=== PATIENT | female | born 1970 | race Caucasian/White ===

== ENCOUNTER 2017-04-29 10:40 | Emergency (ER) | payer OTHER ==
[2017-04-29 11:06] VITALS: BP 174/100
--- NOTE | 2017-04-29 11:16 | EDM.PDOC ---
ED HPI GENERAL MEDICAL PROBLEM - General Chief Complaint: Abdominal Pain Stated Complaint: VOMITING/CHEST AND ABDOMINAL PAIN Time Seen by Provider: 04/29/17 11:14 Source of Information: Reports: Patient - History of Present Illness INITIAL COMMENTS - FREE TEXT/NARRATIVE: Patient is here for evaluation of nausea/vomiting/diarrhea since around 3:00 this morning. She notes that she did have some abdominal pain on Thursday evening, but she felt very well Thursday evening. She had a normal dinner and snack Thursday night before going to bed. She was awoken around 3 in the morning with diarrhea and vomiting at the same time. Patient states she has had several episodes of this in the last 8 hours. She denies any fever/chills. Denies hematemesis/hematochezia/melena. Denies any change in diet. She has not traveled anywhere had no contacts that she knows of. Currently having mid abdominal pain. Epigastric Pain Score (Numeric/FACES): 10 - Related Data Allergies Allergy/AdvReac Type Severity Reaction Status Date / Time No Known Allergies Allergy Verified 04/29/17 11:06 Home Meds: Home Meds ALPRAZolam [Xanax] 1 mg PO Q8H PRN 11/19/13 [History] Ibuprofen 800 mg PO TID PRN 11/19/13 [History] Triamcinolone Acetonide 1 applic TOP DAILY 11/19/13 [History] DULoxetine [Cymbalta] 60 mg PO DAILY 04/29/17 [History] Methylcellulose [Fiber] 500 mg PO DAILY 04/29/17 [History] Ondansetron HCl [Zofran] 4 mg PO Q8HR PRN #10 tablet 04/29/17 [Rx] buPROPion [buPROPion XL] 150 mg PO DAILY 04/29/17 [History] Past Medical History Genitourinary History: Reports: Urinary Incontinence Musculoskeletal History: Reports: Fibromyalgia Psychiatric History: Reports: Anxiety, Depression - Past Surgical History Female Surgical History: Reports: Hysterectomy, Tubal Ligation Social & Family History - Tobacco Use Smoking Status *Q: Current Every Day Smoker Years of Tobacco use: 20 Packs/Tins Daily: 0.5 - Caffeine Use Caffeine Use: Reports: Soda, Tea - Alcohol Use Days Per Week of Alcohol Use: 0 - Recreational Drug Use Recreational Drug Use: No - Living Situation & Occupation Living situation: Reports: , with Spouse Occupation: Unemployed ED ROS GENERAL - Review of Systems Review Of Systems: See Below Constitutional: Reports: Weakness, Fatigue, Decreased Appetite. Denies: Fever, Chills HEENT: Reports: No Symptoms Respiratory: Reports: No Symptoms Cardiovascular: Reports: No Symptoms GI/Abdominal: Reports: Abdominal Pain, Decreased Appetite, Nausea, Vomiting. Denies: Bloody Stool, Hematemesis : Reports: No Symptoms Musculoskeletal: Reports: No Symptoms Skin: Reports: No Symptoms Neurological: Reports: No Symptoms Psychiatric: Reports: No Symptoms ED EXAM, GI/ABD - Physical Exam Exam: See Below Exam Limited By: No Limitations General Appearance: Alert, WD/WN, Anxious, Mild Distress Throat/Mouth: Normal Inspection, Normal Oropharynx Neck: Normal Inspection, Supple, Non-Tender Respiratory/Chest: No Respiratory Distress, Lungs Clear, Normal Breath Sounds Cardiovascular: Regular Rate, Rhythm, No Murmur GI/Abdominal Exam: Soft, Tender (Mild generalized tenderness, moderate epigastric tenderness), Abnormal Bowel Sounds (Hyperactive) Neurological: Alert, Oriented Psychiatric: Anxious Skin Exam: Warm, Dry, Intact Course - Vital Signs Last Recorded V/S: Last Vital Signs Temp 97.8 F 04/29/17 11:04 Pulse 79 04/29/17 11:04 Resp 24 H 04/29/17 11:04 BP 174/100 H 04/29/17 11:04 Pulse Ox 100 04/29/17 11:04 - Orders/Labs/Meds Orders: Active Orders 24 hr Category Date Time Status EKG Documentation Completion [RC] ASDIRECTED Care 04/29/17 13:13 Active Sodium Chloride 0.9% [Normal Saline] 1,000 ml Med 04/29/17 13:20 Active IV ONETIME EKG 12 Lead [EK] Stat Ther 04/29/17 13:13 Ordered Medication Orders Sodium Chloride (Normal Saline) 1,000 mls @ 250 mls/hr IV ONETIME ONE Stop: 04/29/17 17:19 Last Admin: 04/29/17 13:33 Dose: 250 mls/hr Labs: Laboratory Tests 04/29/17 04/29/17 04/29/17 Range/Units 10:55 10:55 11:44 WBC 7.25 (3.98-10.04) K/mm3 RBC 4.71 (3.98-5.22) M/mm3 Hgb 13.8 (11.2-15.7) gm/L Hct 40.6 (34.1-44.9) % MCV 86.2 (79.4-94.8) fl MCH 29.3 (25.6-32.2) pg MCHC 34.0 (32.2-35.5) g/dl RDW Std Deviation 42.8 (36.4-46.3) fL Plt Count 354 (182-369) K/mm3 MPV 9.3 L (9.4-12.3) fl Neutrophils % (Manual) 74 H (40-60) % Band Neutrophils % 1 (0-10) % Lymphocytes % (Manual) 23 (20-40) % Atypical Lymphs % 0 % Monocytes % (Manual) 2 (2-10) % Eosinophils % (Manual) 0 L (0.7-5.8) % Basophils % (Manual) 0 L (0.1-1.2) Platelet Estimate Adequate RBC Morph Comment Normal Sodium 136 (136-145) mEq/L Potassium 3.8 (3.5-5.1) mEq/L Chloride 100 (98-107) mEq/L Carbon Dioxide 27 (21-32) mEq/L Anion Gap 12.8 (5-15) BUN 17 (7-18) mg/dL Creatinine 0.9 (0.55-1.02) mg/dL Est Cr Clr Drug Dosing TNP Estimated GFR (MDRD) > 60 (>60) mL/min BUN/Creatinine Ratio 18.9 H (14-18) Glucose 117 H (74-106) mg/dL Calcium 8.8 (8.5-10.1) mg/dL Total Bilirubin 0.3 (0.2-1.0) mg/dL AST 31 (15-37) U/L ALT 53 (14-59) U/L Alkaline Phosphatase 74 (46-116) U/L C-Reactive Protein < 0.2 (<1.0) mg/dL Total Protein 7.3 (6.4-8.2) g/dl Albumin 4.0 (3.4-5.0) g/dl Globulin 3.3 gm/dL Albumin/Globulin Ratio 1.2 (1-2) Lipase 80 (73-393) U/L Urine Color Yellow (Yellow) Urine Appearance Clear (Clear) Urine pH 8.5 H (5.0-8.0) Ur Specific [place] 1.020 (1.005-1.030) Urine Protein 1+ H (Negative) Urine Glucose (UA) Negative (Negative) Urine Ketones Negative (Negative) Urine Occult Blood Trace-intact H (Negative) Urine Nitrite Negative (Negative) Urine Bilirubin Negative (Negative) Urine Urobilinogen 0.2 (0.2-1.0) Ur Leukocyte Esterase Negative (Negative) Urine RBC 5-10 H (0-5) /hpf Urine WBC 0-5 (0-5) /hpf Ur Epithelial Cells 0-5 (0-5) /hpf Urine Bacteria Few (FEW) /hpf Urine Mucus Few (FEW) /hpf Urine Opiates Screen (NEGATIVE) Ur Buprenorphine Scrn (NEGATIVE) Ur Oxycodone Screen (NEGATIVE) Urine Methadone Screen (NEGATIVE) Ur Propoxyphene Screen (NEGATIVE) Ur Barbiturates Screen (NEGATIVE) Ur Tricyclics Screen (NEGATIVE) Ur Phencyclidine Scrn (NEGATIVE) Ur Amphetamine Screen (NEGATIVE) U Methamphetamines Scrn (NEGATIVE) U Benzodiazepines Scrn (NEGATIVE) U Cocaine Metab Screen (NEGATIVE) U Marijuana (THC) Screen (NEGATIVE) 04/29/17 Range/Units 11:44 WBC (3.98-10.04) K/mm3 RBC (3.98-5.22) M/mm3 Hgb (11.2-15.7) gm/L Hct (34.1-44.9) % MCV (79.4-94.8) fl MCH (25.6-32.2) pg MCHC (32.2-35.5) g/dl RDW Std Deviation (36.4-46.3) fL Plt Count (182-369) K/mm3 MPV (9.4-12.3) fl Neutrophils % (Manual) (40-60) % Band Neutrophils % (0-10) % Lymphocytes % (Manual) (20-40) % Atypical Lymphs % % Monocytes % (Manual) (2-10) % Eosinophils % (Manual) (0.7-5.8) % Basophils % (Manual) (0.1-1.2) Platelet Estimate RBC Morph Comment Sodium (136-145) mEq/L Potassium (3.5-5.1) mEq/L Chloride (98-107) mEq/L Carbon Dioxide (21-32) mEq/L Anion Gap (5-15) BUN (7-18) mg/dL Creatinine (0.55-1.02) mg/dL Est Cr Clr Drug Dosing Estimated GFR (MDRD) (>60) mL/min BUN/Creatinine Ratio (14-18) Glucose (74-106) mg/dL Calcium (8.5-10.1) mg/dL Total Bilirubin (0.2-1.0) mg/dL AST (15-37) U/L ALT (14-59) U/L Alkaline Phosphatase (46-116) U/L C-Reactive Protein (<1.0) mg/dL Total Protein (6.4-8.2) g/dl Albumin (3.4-5.0) g/dl Globulin gm/dL Albumin/Globulin Ratio (1-2) Lipase (73-393) U/L Urine Color (Yellow) Urine Appearance (Clear) Urine pH (5.0-8.0) Ur Specific [place] (1.005-1.030) Urine Protein (Negative) Urine Glucose (UA) (Negative) Urine Ketones (Negative) Urine Occult Blood (Negative) Urine Nitrite (Negative) Urine Bilirubin (Negative) Urine Urobilinogen (0.2-1.0) Ur Leukocyte Esterase (Negative) Urine RBC (0-5) /hpf Urine WBC (0-5) /hpf Ur Epithelial Cells (0-5) /hpf Urine Bacteria (FEW) /hpf Urine Mucus (FEW) /hpf Urine Opiates Screen Negative (NEGATIVE) Ur Buprenorphine Scrn Negative (NEGATIVE) Ur Oxycodone Screen Negative (NEGATIVE) Urine Methadone Screen Negative (NEGATIVE) Ur Propoxyphene Screen Negative (NEGATIVE) Ur Barbiturates Screen Negative (NEGATIVE) Ur Tricyclics Screen Negative (NEGATIVE) Ur Phencyclidine Scrn Negative (NEGATIVE) Ur Amphetamine Screen Negative (NEGATIVE) U Methamphetamines Scrn Negative (NEGATIVE) U Benzodiazepines Scrn Presumptive positive H (NEGATIVE) U Cocaine Metab Screen Negative (NEGATIVE) U Marijuana (THC) Screen Presumptive positive H (NEGATIVE) Meds: Medications Generic Name Dose Route Start Last Admin Trade Name Freq PRN Reason Stop Dose Admin Sodium Chloride 1,000 mls @ 250 mls/hr 04/29/17 13:20 04/29/17 13:33 Normal Saline IV 04/29/17 17:19 250 mls/hr ONETIME ONE Administration Discontinued Medications Generic Name Dose Route Start Last Admin Trade Name Devan PRN Reason Stop Dose Admin Sodium Chloride 1,000 mls @ 999 mls/hr 04/29/17 11:22 04/29/17 11:39 Normal Saline IV 04/29/17 12:22 999 mls/hr ONETIME ONE Administration Ketorolac Tromethamine 30 mg 04/29/17 11:22 04/29/17 11:38 Toradol IVPUSH 04/29/17 11:23 30 mg ONETIME ONE Administration Metoclopramide HCl 5 mg 04/29/17 13:20 04/29/17 13:33 Reglan IVPUSH 04/29/17 13:21 5 mg ONETIME ONE Administration Metoclopramide HCl 5 mg 04/29/17 15:25 04/29/17 16:33 Reglan IVPUSH 04/29/17 15:26 5 mg ONETIME ONE Administration Ondansetron HCl 4 mg 04/29/17 11:22 04/29/17 11:38 Zofran IVPUSH 04/29/17 11:23 4 mg ONETIME ONE Administration Ondansetron HCl 4 mg 04/29/17 12:22 04/29/17 12:26 Zofran IVPUSH 04/29/17 12:23 4 mg ONETIME ONE Administration - Re-Assessments/Exams Free Text/Narrative Re-Assessment/Exam: Not acute abdomen. WBC 7,250 with 74% neutrophils 1% bands. CRP <0.2. I do suspect that this is more of a viral gastroenteritis, however patient has been smoking marijuana frequently as well. I recommended that she avoid this. Patient had significant improvement in symptoms after antiemetic medication and fluids. Will discharge her home with when necessary Zofran. Advised patients to have very tiny sips of water today only. She may advance tomorrow diet tomorrow if feeling better. Very bland/BRAT diet. X line She'll follow-up with PCP in 48 hours or return to emergency room if needed. 04/29/17 14:54 04/29/17 16:59 Departure - Departure Time of Disposition: 17:00 Disposition: Home, Self-Care 01 Condition: Good Clinical Impression: Gastroenteritis - Discharge Information Prescriptions: Ondansetron HCl [Zofran] 4 mg PO Q8HR PRN #10 tablet PRN Reason: Nausea Instructions: Viral Gastroenteritis, Adult, [id number] Referrals: Ashly Arteaga, DAYCARE DIRECTOR [Primary Care Provider] - Forms: ED Department Discharge Additional Instructions: Very tiny sips of water today. If feeling better tomorrow, you can advance her diet. Very bland diet, no sugar /spicy/dairy foods. Do not use marijuana. Follow-up with your primary provider in the next 2 days or certainly return to the emergency room if needed. - My Orders Last 24 Hours: My Active Orders 04/29/17 13:13 EKG Documentation Completion [RC] ASDIRECTED EKG 12 Lead [EK] Stat 04/29/17 13:20 Sodium Chloride 0.9% [Normal Saline] 1,000 ml IV ONETIME - Assessment/Plan Last 24 Hours: My Active Orders 04/29/17 13:13 EKG Documentation Completion [RC] ASDIRECTED EKG 12 Lead [EK] Stat 04/29/17 13:20 Sodium Chloride 0.9% [Normal Saline] 1,000 ml IV ONETIME
[2017-04-29] MEDS ORDERED: Ondansetron 4 MG/2 ML SDV IVPUSH ONE ×2 (11:22→12:22)
[2017-04-29] MEDS ORDERED: Ketorolac 30 MG/ML SDV IVPUSH ONE (11:22)
[2017-04-29] MEDS ORDERED: Sodium Chloride 0.9% 1,000 ML IV ONE ×2 (11:22→13:20)
[2017-04-29] MEDS ORDERED: Metoclopramide 10 MG/2 ML SDV IVPUSH ONE ×2 (13:20→15:25)
== END 2017-04-29 17:11 | disposition home or self-care (01) ==
LOC: JD.ED 10:40
DX: K52.9 Noninfective gastroenteritis and colitis, unspecified (principal); F17.210 Nicotine dependence, cigarettes, uncomplicated; Z79.899 Other long term (current) drug therapy
CPT/HCPCS: 36415; 80053; 80306; 81001; 83690; 85025; 86140; 93005; 96361; 96374; 96375; 96376; 99285; J1885; J2405; J2765; J7040; 99284